=== PATIENT | male | born 1990 | race African-American/Black ===

== ENCOUNTER 2022-05-12 10:42 | Emergency (ER) | payer SELFPAY ==
[2022-05-12] MEDS ORDERED: Acetaminophen 500 MG TAB ONE (11:40)
== END 2022-05-12 13:25 ==
LOC: ERS 10:42
DX: S63.601A Unspecified sprain of right thumb, initial encounter (principal); W18.30XA Fall on same level, unspecified, initial encounter; Y93.61 Activity, american tackle football